=== PATIENT | female | born 1950 | race Caucasian/White ===

== ENCOUNTER 2025-06-14 15:00 | Outpatient (CLI) | payer MEDICARE ==
[2025-06-14 15:57] LABS: Estimated GFR - POC 53.0
== END 2025-06-14 15:01 | disposition home or self-care (01) ==
LOC: SCSMRI 15:00
PROVIDERS: ATTEND Family Medicine
DX: M25.561 Pain in right knee (principal); S82.301A Unspecified fracture of lower end of right tibia, initial encounter for closed fracture; T69.021A Immersion foot, right foot, initial encounter; M94.261 Chondromalacia, right knee; M94.8X6 Other specified disorders of cartilage, lower leg; M89.9 Disorder of bone, unspecified
CPT/HCPCS: 36415; 82565